=== PATIENT | male | born 1960 | race Caucasian/White ===

== ENCOUNTER 2020-10-16 15:25 | Inpatient (IN) | payer OTHER ==
[~2020-10-16] VITALS: Ht 177.8 cm; Wt 93.5 kg
--- NOTE | 2020-10-16 15:44 | PHYS DOC ---
General Adult HPI: HPI: Patient is a 60-year-old male who presents with dizziness and recent falls in the last couple of months. Patient reports chronic low back pain and left knee pain. Patient denies dizziness today. Patient denies pain to head or neck neck. (SAVAGE HERNADEZ APRN) Review of Systems: Review of Systems: Constitutional: Denies fever or chills Eyes: Denies change in visual acuity HENT: Denies nasal congestion or sore throat Respiratory: Denies cough or shortness of breath Cardiovascular: Denies chest pain or edema GI: Denies abdominal pain, nausea, vomiting, bloody stools or diarrhea : Denies dysuria Musculoskeletal: reports low back pain Integument: abrasion to right knee Neurologic: Denies headache, focal weakness or sensory changes Endocrine: Denies polyuria or polydipsia Lymphatic: Denies swollen glands Psychiatric: Denies depression or anxiety (SAVAGE HERNADEZ APRN) Physical Exam: PE: Constitutional: Well developed, well nourished, no acute distress, non-toxic appearance. [] HENT: Normocephalic, atraumatic, bilateral external ears normal, oropharynx moist, no oral exudates, nose normal. [] Eyes: PERRLA, EOMI, conjunctiva normal, no discharge. [] Neck: Normal range of motion, no tenderness, supple, no stridor. [] Cardiovascular:Heart rate regular rhythm, no murmur , reports dizziness[] Lungs & Thorax: Bilateral breath sounds clear to auscultation [] Abdomen: Bowel sounds normal, soft, no tenderness, no masses, no pulsatile masses. [] Skin: Warm, dry, no erythema, abrasion to right knee Back: low back, tenderness, no CVA tenderness. [] Extremities: No tenderness, no cyanosis, no clubbing, ROM intact, no edema. [] Neurologic: Alert and oriented X 3, normal motor function, normal sensory function, no focal deficits noted. [] Psychologic: Affect normal, judgement normal, mood normal. [] (SAVAGE HERNADEZ APRN) EKG: EKG: Sinus rate of 58 bpm. 0 intervals, 0 axis deviation. Non-SP. ST wave abnorm ality in V3, V4, V5, V6 [] (SAVAGE HERNADEZ APRN) Radiology/Procedures: Radiology/Procedures: []EXAM: 1. Right knee, 3 views. 2. Right ankle, 3 views. HISTORY: Fall, pain. COMPARISON: None. FINDINGS: No fractures are identified. Mild lateral compartmental joint space narrowing is suspected. Alignment is normal. There is a moderate to large joint effusion. There is a small avulsion fracture along the dorsum of the talar neck. There are changes of chronic ligamentous injury at the tip of the lateral malleolus. The joint spaces and alignment of the mortise are maintained. There is a small pl win calcaneal spur. IMPRESSION: 1. Small capsular avulsion fracture along the dorsum of the talar neck. 2. Moderate to large knee effusion. Electronically signed by: Lawrence Nuno MD (10/16/2020 4:47 PM) [facility] EXAM: 1. Right knee, 3 views. 2. Right ankle, 3 views. HISTORY: Fall, pain. COMPARISON: None. FINDINGS: No fractures are identified. Mild lateral compartmental joint space narrowing is suspected. Alignment is normal. There is a moderate to large joint effusion. There is a small avulsion fracture along the dorsum of the talar neck. There are changes of chronic ligamentous injury at the tip of the lateral malleolus. The joint spaces and alignment of the mortise are maintained. There is a small plantar calcaneal spur. IMPRESSION: 1. Small capsular avulsion fracture along the dorsum of the talar neck. 2. Moderate to large knee effusion. Electronically signed by: Lawrence Nuno MD (10/16/2020 4:47 PM) [facility] EXAM: Chest, single view. HISTORY: Fall. COMPARISON: None. FINDINGS: A frontal view of the chest is obtained. There is no infiltrate, pleural effusion or pneumothorax. There is a tiny foreign body along the left lateral aspect of the aortic arch. The heart is normal in size. IMPRESSION: No acute pulmonary finding. Electronically signed by: Alda Quintana MD (10/16/2020 4:20 PM) [id number] FINDINGS: CT head: No acute intracranial hemorrhage. No CT evidence for an acute cortical infarction. The deep prescott nuclei are well delineated. No localized mass effect, midline shift or hydrocephalus. Unremarkable orbits. No large scalp hematoma is identified. Grossly intact calvarium. Normally aerated mastoid air cells, middle ears and visualized paranasal sinuses. Mild carotid siphon calcific atherosclerosis. CT cervical spine: No acute fracture. No traumatic malalignment. Discogenic arthrosis is greatest at C5-C6 and C6-C7. Multilevel facet degeneration which collectively much more pronounced on the left side of the neck particularly at C2-C3, C3-C4 and C7-T1. Osseous neural foraminal encroachment greatest on the left at C3-C4 and C5-C6, and on the right at C6-C7. Potential moderate central canal stenosis at C5-C6 and C6-C7. A few small thyroid nodules may be present but not meeting size criteria for dedicated follow-up. Mild calcific atherosclerosis. No prevertebral edema. No apical pneumothorax. IMPRESSION: CT head: 1. No acute intracranial abnormality by CT. CT cervical spine: 1. No acute fracture or traumatic malalignment. 2. Multilevel, multifactorial degenerative changes collectively greatest at C3- C4, C5-C6 and C6-C7 and described in the body the report (SAVAGE HERNADEZ APRN) Heart Score: Risk Factors: Risk Factors: DM, Current or recent (<one month) smoker, HTN, HLP, family history of CAD, obesity. Risk Scores: Score 0 - 3: 2.5% MACE over next 6 weeks - Discharge Home Score 4 - 6: 20.3% MACE over next 6 weeks - Admit for Clinical Observation Score 7 - 10: 72.7% MACE over next 6 weeks - Early Invasive Strategies (SAVAGE HERNADEZ APRN) Course & Med Decision Making: Course & Med Decision Making Pertinent Labs and Imaging studies reviewed. (See chart for details) []CT head/neck , cardiac workup to r/o cause of dizziness U Splint placed on Left lower leg per ortho. Recheck after splint placed, neurologically intact (SAVAGE HERNADEZ APRN) Course & Med Decision Making I oversaw care of patient while in ER. Case discussed with CONTROLLED AREA CHECKER. PAtient seen and examined by myself with certain aspects of HPI and physical exam performed I coordinated care of patient with Ortho who recomended CT LE and U-splint with no posterior involvement and outpatient follow-up I contacted hospitalist regarding case and need for admission IV mag replaced in addition to 40meq K given Patient updated on plan of care for admission and amenable All questions and concerns addressed prior to ER transport to [facility] for continued inpatient management This patient required critical care. Due to the fact that the patient required a significant amount of one on one physician patient contact time, ordering and review of studies, arranging urgent treatment with development of a management plan, evaluation of patients response to treatment with frequent reassessments, and discussions with other providers this patient required critical care time in excess of 30 minutes. Critical care time was indicated due to the inherent instability and/or potential for instability in this patient. The critical care time that is allocated to this patient is above and beyond any time spent on any other billable procedures performed on this patient. (BRANDO SHERWOOD DO) Dragon Disclaimer: Dragon Disclaimer: This electronic medical record was generated, in whole or in part, using a voice recognition dictation system. (SAVAGE HERNADEZ APRN) Departure Departure: Impression: Primary Impression: Hypokalemia Additional Impression: Fracture of right talus Disposition: ADMITTED INPT THIS HOSP Admitting Physician: Bharat Lafleur (SAVAGE HERNADEZ APRN) Admitting Physician: Bharat Lafleur (BRANDO SHERWOOD DO) Condition: STABLE Referrals: PCP,NO (PCP) Dragon Disclaimer This chart was dictated in whole or in part using Voice Recognition software in a busy, high-work load, and often noisy Emergency Department environment. It may contain unintended and wholly unrecognized errors or omissions. (VICKI MATAMOROS MD) Dragon Disclaimer This chart was dictated in whole or in part using Voice Recognition software in a busy, high-work load, and often noisy Emergency Department environment. It may contain unintended and wholly unrecognized errors or omissions. (SAVAGE HERNADEZ APRN) Dragon Disclaimer This chart was dictated in whole or in part using Voice Recognition software in a busy, high-work load, and often noisy Emergency Department environment. It may contain unintended and wholly unrecognized errors or omissions. (VICKI MATAMOROS MD) Attending Signature Attending Signature I have participated in the care of this patient and I have reviewed and agree with all pertinent clinical information above including history, exam, and recommendations. (VICKI MATAMOROS MD) SAVAGE HERNADEZ APRN Oct 16, 2020 15:44 VICKI MATAMOROS MD Oct 16, 2020 18:02 BRANDO SHERWOOD DO Oct 17, 2020 13:27
[2020-10-16 16:19] LABS: BASO % 0 % (0-3); EOS # 0.2 x10^3/uL (0.0-0.7); EOS % 2 % (0-3); HEMATOCRIT 38.5 % (39.0-53.0); HEMOGLOBIN 13.4 g/dL (13.0-17.5); LYMPH # 1.9 x10^3/uL (1.0-4.8); LYMPH % 24 % (24-48); MEAN CORPUSCULAR HEMOGLOBIN 31 pg (25-35); MEAN CORPUSCULAR HGB CONC 35 g/dL (31-37); MEAN CORPUSCULAR VOLUME 88 fL (79-100); MONO % 12 % (0-9); NEUT # 4.9 x10^3uL (1.8-7.7); NEUT % 62 % (31-73); PLATELET COUNT 186 x10^3/uL (140-400); RED BLOOD COUNT 4.36 x10^6/uL (4.30-5.70); RED CELL DISTRIBUTION WIDTH 14.6 % (11.5-14.5); WHITE BLOOD COUNT 7.9 x10^3/uL (4.0-11.0)
--- NOTE | 2020-10-16 16:23 | RAD ---
EXAM: Chest, single view. HISTORY: Fall. COMPARISON: None. FINDINGS: A frontal view of the chest is obtained. There is no infiltrate, pleural effusion or pneumo thorax. There is a tiny foreign body along the left lateral aspect of the aortic arch. The heart is n ormal in size. IMPRESSION: No acute pulmonary finding. Electronically signed by: Alda Quintana MD (10/16/2020 4:20 PM) [id number]
--- NOTE | 2020-10-16 16:30 | EKG ---
[address] [address] Test Date: 2020-10-16 Test Time: 16:11:16 Pat Name: TY GARCÍA Department: Room: Gender: M Calibration Engineer: WILBER : [id number] Requested By: SAVAGE HERNADEZ Order Number: [id number] Reading MD: Measurements Intervals [place] Rate: 58 P: 0 IN: 194 QRS: 31 QRSD: 92 T: -36 QT: 396 QTc: 392 Interpretive Statements SINUS RHYTHM ST & T ABNORMALITY, CONSIDER ANTERIOR ISCHEMIA OR LEFT VENTRICULAR STRAIN LATERAL ISCHEMIA OR LEFT VENTRICULAR STRAIN INFEROLATERAL ISCHEMIA OR LEFT VENTRICULAR STRAIN ABNORMAL ECG RI6.02 No previous ECG available for comparison
[2020-10-16 16:36] LABS: ALBUMIN 3.2 g/dL (3.4-5.0); ALBUMIN/GLOBULIN RATIO 0.8 (1.0-1.7); CALCIUM 8.6 mg/dL (8.5-10.1); CREATININE 1.2 mg/dL (0.7-1.3); GFR 61.3; TOTAL BILIRUBIN 0.5 mg/dL (0.2-1.0)
[2020-10-16 16:39] LABS: POTASSIUM 2.2 mmol/L (3.5-5.1)
--- NOTE | 2020-10-16 16:49 | RAD ---
EXAM: 1. Right knee, 3 views. 2. Right ankle, 3 views. HISTORY: Fall, pain. COMPARISON: None. FINDINGS: No fractures are identified. Mild lateral compartmental joint space narrowing is suspected. Alignment is normal. There is a moderate to large joint effusion. There is a small avulsion fracture along the dorsum of the talar neck. There are changes of chronic l igamentous injury at the tip of the lateral malleolus. The joint spaces and alignment of the mortise are maintained. There is a small plantar calcaneal spur. IMPRESSION: 1. Small capsular avulsion fracture along the dorsum of the talar neck. 2. Moderate to large knee effusion. Electronically signed by: Lawrence Nuno MD (10/16/2020 4:47 PM) [facility]
--- NOTE | 2020-10-16 16:55 | RAD ---
STUDY: CT head and cervical spine without contrast INDICATION: Recent fall spur COMPARISON: None. TECHNIQUE: Axial CT imaging through the head and cervical spine without the use of intravenous contra st. Sagittal and coronal reformats were obtained. One or more of the following individualized dose reduction techniques were utilized for this examinat ion: 1. Automated exposure control 2. Adjustment of the mA and/or kV according to patient size 3. Use of iterative reconstruction technique. FINDINGS: CT head: No acute intracranial hemorrhage. No CT evidence for an acute cortical infarction. The deep prescott nucl ei are well delineated. No localized mass effect, midline shift or hydrocephalus. Unremarkable orbits. No large scalp hematoma is identified. Grossly intact calvarium. Normally aerate d mastoid air cells, middle ears and visualized paranasal sinuses. Mild carotid siphon calcific ather osclerosis. CT cervical spine: No acute fracture. No traumatic malalignment. Discogenic arthrosis is greatest at C5-C6 and C6-C7. Multilevel facet degeneration which collectively much more pronounced on the left side of the neck particularly at C2-C3, C3-C4 and C7-T1. Osseous ne ural foraminal encroachment greatest on the left at C3-C4 and C5-C6, and on the right at C6-C7. Poten tial moderate central canal stenosis at C5-C6 and C6-C7. A few small thyroid nodules may be present but not meeting size criteria for dedicated follow-up. Mil d calcific atherosclerosis. No prevertebral edema. No apical pneumothorax. IMPRESSION: CT head: 1. No acute intracranial abnormality by CT. CT cervical spine: 1. No acute fracture or traumatic malalignment. 2. Multilevel, multifactorial degenerative changes collectively greatest at C3-C4, C5-C6 and C6-C7 a nd described in the body the report. Electronically signed by: SHANELL POTTER MD (10/16/2020 4:52 PM) [facility]
[2020-10-16] MEDS ORDERED: POTASSIUM CHLORIDE 20 MEQ TABLET.ER. PO ONE (17:00)
[2020-10-16 17:51] LABS: BARBITURATES NEG (NEG); BENZODIAZEPINES NEG (NEG); CANNABINOIDS NEG (NEG); COCAINE NEG (NEG); METHADONE NEG (NEG); OPIATES NEG (NEG); PHENCYCLIDINE NEG (NEG)
[2020-10-16 17:55] LABS: AMPHETAMINE/METHAMPHETAMINE NEG (NEG)
--- NOTE | 2020-10-16 18:27 | RAD ---
STUDY: CT of the right lower extremity without contrast INDICATION: Right talar fracture. COMPARISON: Same day ankle radiographs. TECHNIQUE: Axial CT imaging of the right lower extremity/ankle performed without contrast. Coronal an d sagittal reformats were obtained. One or more of the following individualized dose reduction techniques were utilized for this examinat ion: 1. Automated exposure control 2. Adjustment of the mA and/or kV according to patient size 3. Use of iterative reconstruction technique. FINDINGS: Avulsion fracture at the dorsum of the talus at the expected location of the talonavicular ligament o rigin. The fragment measures approximately 8 mm AP. The navicular is intact. The rest of the talus is intact. Os trigonum. There is also a nondisplaced avulsion fracture of the calcaneus at the origin o f the dorsal calcaneocuboid ligament with the fragment measuring up to approximately 13 mm AP. No acu te fracture seen at the ankle. No evidence for peroneal or flexor tendon disruption or dislocation. Intact Achilles. Scattered postt raumatic soft tissue edema. IMPRESSION: 1. Acute avulsion fracture off the dorsum of the talus at the origin of the dorsal talonavicular lig ament. 2. Acute calcaneal avulsion fracture without significant displacement occurring at the origin of the dorsal calcaneocuboid ligament. Electronically signed by: SHANELL POTTER MD (10/16/2020 6:24 PM) [facility]
[2020-10-16 19:16] VITALS: BP 148/84
--- NOTE | 2020-10-16 20:17 | RAD ---
Study: 1. XR EXAM OF ANKLE_LEFT 3V 2. XR KNEE _4 VIEWS WITH PATELLA_LT Indication: Fall Comparison: None. Findings: Left ankle: Acute avulsion fracture off the dorsum of the distal talus. There is also an avulsion fracture at the dorsal aspect of the navicular. Avulsion fracture at the lateral aspect of the calcaneus. No acute f racture seen at the ankle or traumatic malalignment. Soft tissue edema associated with fractures. Left knee: No acute fractures identified. No traumatic malalignment. No significant femorotibial compartment dominic nt space narrowing. Findings at the patellofemoral compartment suggesting patellar more so than troch lear chondrosis. No large knee joint effusion is apparent but assessment is limited due to the degree of knee flexion. Mild vascular calcifications. Impression: Left ankle: 1. Small fracture fragments at the dorsum of the distal talus and navicular compatible with avulsive injury at the dorsal talonavicular insertions. 2. Lateral calcaneal avulsion fracture typical of avulsive injury at the dorsal calcaneocuboid insert ion. Left knee: 1. No acute fracture or traumatic malalignment. Electronically signed by: SHANELL POTTER MD (10/16/2020 8:15 PM) [facility]
[2020-10-16 22:23] VITALS: BP 126/70
[2020-10-16] MEDS ORDERED: ACETAMINOPHEN 500 MG TABLET PO PRN (23:15)
[2020-10-16] MEDS ORDERED: MAGNESIUM SULFATE 1GM 100 ML IV ONE (23:15)
[2020-10-16] MEDS ORDERED: TAMS0.4C97 PO (23:30)
[2020-10-16] MEDS ORDERED: AMIT50TA PO (23:30)
[2020-10-16] MEDS ORDERED: FURO80TA3 PO (23:30)
[2020-10-16] MEDS ORDERED: TIZA4TAB2 PO (23:30)
[2020-10-16] MEDS ORDERED: BUPR1FIL5 SL (23:30)
[2020-10-16] MEDS ORDERED: BACL20TA PO (23:30)
[2020-10-16] MEDS ORDERED: BACLOFEN 20 MG TABLET PO PRN (23:30)
[2020-10-16] MEDS ORDERED: FLUO40CA2 PO (23:30)
[2020-10-16] MEDS ORDERED: BUPR200T PO (23:30)
[2020-10-16] MEDS ORDERED: ICOS0.5C PO (23:30)
[2020-10-16] MEDS ORDERED: NAPR-514 PO (23:30)
[2020-10-16] MEDS ORDERED: CRESTOR40 MG PO (23:30)
[2020-10-16] MEDS ORDERED: SEMA0.25 SQ (23:30)
[2020-10-16] MEDS ORDERED: CARV25TA PO (23:30)
[2020-10-17] MEDS ORDERED: DEXT20TA2 PO (02:01)
[2020-10-17 05:38] VITALS: BP 124/69
[2020-10-17 06:10] LABS: CALCIUM 8.1 mg/dL (8.5-10.1); CREATININE 1.2 mg/dL (0.7-1.3); GFR 61.3
[2020-10-17 06:11] LABS: POTASSIUM 2.2 mmol/L (3.5-5.1)
[2020-10-17] MEDS ORDERED: MAGNESIUM SULFATE 1GM 100 ML IV ONE (06:30)
[2020-10-17] MEDS ORDERED: POTASSIUM CHLORIDE 20 MEQ TABLET.ER. PO SCH (08:00)
[2020-10-17 08:23] LABS: BASO % 0 % (0-3); EOS # 0.2 x10^3/uL (0.0-0.7); EOS % 3 % (0-3); HEMATOCRIT 34.4 % (39.0-53.0); HEMOGLOBIN 12.2 g/dL (13.0-17.5); LYMPH # 1.9 x10^3/uL (1.0-4.8); LYMPH % 31 % (24-48); MEAN CORPUSCULAR HEMOGLOBIN 31 pg (25-35); MEAN CORPUSCULAR HGB CONC 35 g/dL (31-37); MEAN CORPUSCULAR VOLUME 87 fL (79-100); MONO # 0.6 x10^3/uL (0.0-1.1); MONO % 10 % (0-9); NEUT # 3.4 x10^3uL (1.8-7.7); NEUT % 56 % (31-73); PLATELET COUNT 158 x10^3/uL (140-400); RED BLOOD COUNT 3.95 x10^6/uL (4.30-5.70); RED CELL DISTRIBUTION WIDTH 15.2 % (11.5-14.5); WHITE BLOOD COUNT 6.2 x10^3/uL (4.0-11.0)
[2020-10-17 08:30] LABS: ALBUMIN 2.7 g/dL (3.4-5.0); TOTAL BILIRUBIN 0.4 mg/dL (0.2-1.0); TOTAL PROTEIN 6.3 g/dL (6.4-8.2)
[2020-10-17] MEDS: TAMSULOSIN 0.4 MG CAP.ER.24H. PO SCH ×2 (08:46→21:06)
[2020-10-17] MEDS: POTASSIUM CHLORIDE 20 MEQ TABLET.ER. PO SCH ×6 (08:47→17:32)
[2020-10-17] MEDS: FLUoxetine HCL 20 MG CAPSULE PO SCH (08:47)
[2020-10-17] MEDS: CARVEDILOL 12.5 MG TABLET PO SCH ×2 (08:48→17:03)
[2020-10-17] MEDS: buPROPion SR 100 MG TABLET.SA. PO SCH ×2 (08:48→21:06)
[2020-10-17] MEDS: tiZANidine 4 MG TABLET. PO SCH ×2 (08:52→21:06)
[2020-10-17] MEDS ORDERED: [UNRECOGNIZED DRUG - OTHER] SL SCH (09:00)
[2020-10-17] MEDS: NON FORMULARY ITEM (Dextroamphetamine/Amphetamine (Adderall 20 Mg Tablet) 1 TAB) PO SCH ×3 (09:00→21:00)
[2020-10-17] MEDS ORDERED: BUPRENORPHINE HCL SL SCH (09:00)
[2020-10-17] MEDS ORDERED: NALOXONE HCL SL SCH (09:00)
[2020-10-17] MEDS: NON FORMULARY ITEM (Icosapent Ethyl (Vascepa) 2 CAP) PO SCH ×2 (09:00→21:00)
[2020-10-17 09:02] LABS: DIRECT BILIRUBIN 0.1 mg/dL (0.0-0.2)
[2020-10-17 11:00] VITALS: BP 121/63
[2020-10-17 14:49] VITALS: BP 113/65
[2020-10-17 15:11] LABS: CALCIUM 8.5 mg/dL (8.5-10.1); GFR 75.7
[2020-10-17 15:14] LABS: POTASSIUM 2.7 mmol/L (3.5-5.1)
--- NOTE | 2020-10-17 15:37 | HP ---
ADMIT DATE: 10/16/2020 HISTORY OF PRESENT ILLNESS: The patient is a 60-year-old male patient who came to the Emergency Room with a complaint of dizziness and recent falls in the last couple of months. The patient reports chronic low back pain and left knee pain. He denied any headache or neck pain. He did complain of pain in his right lower extremity and was extensively investigated. He has x-rays of his right knee and right ankle joint. The x-ray of his right knee joint showed no fracture identified, mild bilateral compartment joint space narrowing and there is moderate to large joint effusion. The x-ray of his right ankle joint showed there is small avulsion fracture along the dorsum of the talar neck. There are changes of chronic ligamentous injury and the tip of the lateral malleolus. The joint spaces and alignment of the mortise are maintained. There is a small plantar calcaneal spur. His CT scan of the head was unremarkable with no acute intracranial abnormality. X-ray of the cervical spine showed no acute fracture or traumatic malalignment. He has multilevel multifactorial degenerative changes collectively greatest at C3-C4, C5-C6 and C6-C7. Apparently, the ER physician contacted the orthopedic surgeon, who recommended CT scan of the lower extremity and application of U-splint with no visceral involvement and outpatient followup. His lab work, however, showed that he has profound hypokalemia with serum potassium only 2.2 and therefore, the patient was given 40 mEq of potassium, was given also magnesium and was admitted for pain management, physical and occupational therapy and to replenish his potassium. PAST MEDICAL HISTORY: Significant for hypertension, hyperlipidemia. The patient has also narcolepsy and benign prostatic hypertrophy. PAST SURGICAL HISTORY: Surgery on his lower jaw. ALLERGIES: He has no known drug allergies. MEDICATIONS: He is currently on Flomax 0.4 mg at bedtime, tizanidine 4 mg twice a day, baclofen 20 mg 3 times a day, Crestor 40 mg at bedtime. He is on Vascepa 2 capsules p.o. b.i.d., carvedilol 25 mg twice a day, naproxen 500 mg twice a day. He is on Suboxone 1 strip sublingually daily, amitriptyline 50 mg at bedtime. He is on Wellbutrin SR 200 mg twice a day, fluoxetine 40 mg daily, dextromethorphan amphetamine for Adderall 20 mg tablet 3 times a day. He is on furosemide 80 mg twice a day and Ozempic 0.25 subcutaneously weekly. SOCIAL HISTORY: He is single, apparently lives with significant other. He is . He does not smoke, drink alcohol or use recreational drugs. 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 REVIEW OF SYSTEMS: As per history of present illness. PHYSICAL EXAMINATION: GENERAL: When I examined him, he looked well and was clearly in no apparent respiratory distress. No pallor, jaundice, cyanosis or thyromegaly. No jugular venous distention. No limb edema. VITAL SIGNS: His heart rate was 60, blood pressure was 157/92, temperature was 98.4, respiratory rate 20, and oxygen saturation was 96% on room air. HEAD, EYES, EARS, NOSE AND THROAT: Showed normocephalic, atraumatic. NECK: Supple. HEART: Showed normal first and second heart sounds. No gallop, rub or murmur. CHEST: Clear to auscultation. No crepitation or rhonchi. ABDOMEN: Distended, soft, nontender. NEUROLOGIC: He was awake, alert, responding appropriately. All cranial nerves intact. EXTREMITIES: He moves his upper extremities without difficulty. He obviously has marked pain in both his right knee and right ankle, right ankle joint is in a U-splint. LABORATORY DATA: His lab work on admission showed a serum sodium 139, potassium 2.2, chloride 98, bicarbonate 39, anion gap of 2, BUN 10, creatinine 1.2, estimated GFR was 61 mL per minute. His glucose 102, calcium was 8.6. Total bilirubin, AST, ALT, alkaline phosphatase were normal. His total protein was 7, albumin was 3.2. His white cell count was 7900, hemoglobin 13.4, hematocrit 39, MCV 88 and platelet count of 186,000 with normal manual differential. His toxic urine drug screen was negative. He apparently has had a chest x-ray, which basically showed no acute pulmonary finding. CT scan of the head showed no acute intracranial abnormality. CT scan of the cervical spine showed no acute fracture or traumatic malalignment. The patient has multilevel multifactorial degenerative changes collectively greatest at C3-C4, C5-C6 and C6-C7. His right ankle x-ray and the right knee x-ray showed the patient has small capsular avulsion fracture along the dorsum of the talar neck, moderate to large right knee effusion. He did have a CT scan of the lower extremity without contrast, which again showed: 1. Acute avulsion fracture of the talus at the origin of the dorsal talonavicular ligament. 2. Acute calcaneal avulsion fracture without significant displacement recurring at the origin of the dorsal calcaneocuboid ligament. The x-ray of the left ankle joint showed small fracture fragments at the dorsum of the distal talus and navicular compatible with avulsive injury at the dorsal talonavicular insertion, lateral calcaneal avulsion fracture, typical avulsion injury and dorsal calcaneocuboid insertion. The left knee joint showed no acute fracture or traumatic malalignment. ASSESSMENT AND PLAN: The patient was admitted basically for pain management. We continued all his medication and we will replenish his potassium as well as magnesium and we will get physical and occupational therapy and once his potassium normalizes and physical therapy evaluate him, we might be able to discharge him home with arrangement for him to be seen by the orthopedic surgeon as an outpatient. MAYNOR AGUILERA MD DR: [email or web address]/jakob JOB#: [id number] / [id number]
[2020-10-17] MEDS ORDERED: ENOXAPARIN 40 MG/0.4 ML SYRINGE. SQ SCH (17:00)
[2020-10-17 19:38] VITALS: BP 112/70
[2020-10-17 20:06] LABS: CALCIUM 8.4 mg/dL (8.5-10.1); GFR 75.7; POTASSIUM 3.2 mmol/L (3.5-5.1)
[2020-10-17] MEDS ORDERED: ATORVASTATIN CALCIUM 20 MG TABLET PO SCH (21:00)
[2020-10-17] MEDS ORDERED: AMITRIPTYLINE HCL 50 MG TABLET PO SCH (21:00)
[2020-10-17 23:02] VITALS: BP 114/70
[2020-10-17] MEDS: NALOXONE HCL PO SCH (23:09)
[2020-10-17] MEDS: BUPRENORPHINE HCL PO SCH (23:09)
[2020-10-18 06:30] VITALS: BP 154/74
[2020-10-18 07:00] LABS: CALCIUM 8.6 mg/dL (8.5-10.1); CREATININE 1.1 mg/dL (0.7-1.3); GFR 67.8; POTASSIUM 3.5 mmol/L (3.5-5.1)
[2020-10-18] MEDS: NON FORMULARY ITEM (Icosapent Ethyl (Vascepa) 2 CAP) PO SCH (09:00)
[2020-10-18] MEDS: NON FORMULARY ITEM (Dextroamphetamine/Amphetamine (Adderall 20 Mg Tablet) 1 TAB) PO SCH ×2 (09:00→12:22)
[2020-10-18] MEDS ORDERED: FLU VACC QS 2020-21(6MOS+)/PF 0.5 ML SYRINGE. VAX IM ONE (09:00)
[2020-10-18] MEDS: TAMSULOSIN 0.4 MG CAP.ER.24H. PO SCH (09:03)
[2020-10-18] MEDS: CARVEDILOL 12.5 MG TABLET PO SCH (09:03)
[2020-10-18] MEDS: tiZANidine 4 MG TABLET. PO SCH (09:03)
[2020-10-18] MEDS: FLUoxetine HCL 20 MG CAPSULE PO SCH (09:03)
[2020-10-18] MEDS: POTASSIUM CHLORIDE 20 MEQ TABLET.ER. PO SCH ×2 (09:04→12:21)
[2020-10-18] MEDS: BUPRENORPHINE HCL PO SCH (09:04)
[2020-10-18] MEDS: NALOXONE HCL PO SCH (09:04)
[2020-10-18] MEDS: buPROPion SR 100 MG TABLET.SA. PO SCH (09:04)
[2020-10-18 10:57] VITALS: BP 117/73
[2020-10-18] MEDS ORDERED: FURO-68 PO (14:11)
[2020-10-18] MEDS ORDERED: POTA20TA4 PO (14:11)
--- NOTE | 2020-10-18 19:27 | DS ---
DATE OF DISCHARGE: 10/18/2020 HOSPITAL COURSE: The patient is resting, slightly propped up in bed, in no apparent distress. He is pain-free when he is in bed. He continues to have severe pain in his both ankle joints with movement. We have spoken to Dr. Machado and he should be nonweightbearing, should be in CAM boots on both feet, and also should be wheelchair-bound, and he needs a transfer board. We did start him on apixaban for DVT prophylaxis and we have arranged for him to be seen by Dr. Machado in 2 weeks' time. PHYSICAL EXAMINATION: GENERAL: When I examined him this afternoon, he looked well and was clearly in no apparent respiratory distress. There was no pallor, jaundice, cyanosis, or thyromegaly. No jugular venous distention. No limb edema. VITAL SIGNS: His heart rate was 57, blood pressure was 117/73, temperature 97.9, respiratory rate 20, and oxygen saturation was 92%. HEAD, EYES, EARS, NOSE AND THROAT: Showed normocephalic, atraumatic. NECK: Supple. HEART: Showed normal first and second heart sounds. No gallop or murmur. CHEST: Clear to auscultation. No crepitation or rhonchi. ABDOMEN: Distended, soft, nontender. No guarding or rigidity. No organomegaly. All hernial orifice intact. Bowel sounds normal. NEUROLOGIC: He was awake, alert, responding appropriately. All cranial nerves are intact. He moves extremities without difficulty. His right foot is in a U splint. However, we will arrange for him to have both feet in a CAM boot. He is nonweightbearing, should be wheelchair bound, and he can transfer from wheelchair to bed with a transfer board. LABORATORY DATA: Showed a white cell count of 6200, hemoglobin 12, hematocrit 34, MCV 87, and platelet count of 158,000. His chemistry showed a serum sodium 140, potassium 3.5, chloride 105, bicarbonate 35, anion gap of 0, BUN of 8, creatinine 1.1, estimated GFR was 68 mL per minute. His glucose was 90, and calcium was 8.6. DISCHARGE MEDICATIONS: He will be discharged home to continue on furosemide 40 mg once a day, potassium chloride 20 mEq twice a day, amitriptyline 50 mg at bedtime, baclofen 20 mg 3 times a day, Suboxone one strip sublingually daily, Wellbutrin 200 mg twice a day, carvedilol 25 mg twice a day. He is on Adderall 20 mg tablet 3 times a day, fluoxetine 40 mg daily. He is on Vascepa 2 capsules twice a day, Crestor 40 mg at bedtime. He is on Ozempic 0.25 mg in 0.2 mL injection subcutaneously once a week, Flomax 0.4 mg at bedtime, and tizanidine 4 mg twice a day. FINAL DISCHARGE DIAGNOSES: 1. Syncope with resultant fall with bilateral avulsion fracture of the dorsum of the talar neck. He has [id number] knee effusion. 2. Other medical problems include: A. Hypertension. B. Hyperlipidemia. C. Narcolepsy. D. Benign prostatic hypertrophy. E. Chronic pain syndrome. The patient was advised to discontinue naproxen, cut down his Lasix to 40 mg and start on potassium supplement. MAYNOR AGUILERA MD DR: [email or web address] JOB#: [id number] / [id number]
== END 2020-10-18 17:20 | disposition home or self-care (01) | DRG 563 ==
LOC: ER 15:25 → 1 SOUTH 18:53
PROVIDERS: ADMIT Hospitalist; ATTEND Hospitalist
PROC: 2W3LX1Z Immobilization of Right Lower Extremity using Splint (ICD-10-PCS; principal; 2020-10-16)
DX: S92.151A Displaced avulsion fracture (chip fracture) of right talus, initial encounter for closed fracture (principal); E78.5 Hyperlipidemia, unspecified; E87.6 Hypokalemia; G47.419 Narcolepsy without cataplexy; G89.4 Chronic pain syndrome; I10 Essential (primary) hypertension; N40.0 Benign prostatic hyperplasia without lower urinary tract symptoms; M25.461 Effusion, right knee; W01.0XXA Fall on same level from slipping, tripping and stumbling without subsequent striking against object, initial encounter; Y93.89 Activity, other specified; Y92.89 Other specified places as the place of occurrence of the external cause; Y99.8 Other external cause status; Z82.49 Family history of ischemic heart disease and other diseases of the circulatory system; Z87.891 Personal history of nicotine dependence
CPT/HCPCS: 29515; 36415; 70450; 71045; 72125; 73562; 73564; 73610; 73700; 80048; 80053; 80076; 80307; 82947; 83735; 84484; 85025; 90471; 90686; 93005; J1650; J3475; 97530; 99291-25